=== PATIENT | male | born 1990 | race Hispanic/Latino ===

== ENCOUNTER 2018-10-20 09:51 | Emergency (ER) | payer BC ==
[2018-10-20] MEDS ORDERED: Sodium Chloride 0.9% 1,000 ML IV ONE ×2 (10:07→12:04)
--- NOTE | 2018-10-20 10:17 | ED PDOC ---
HPI: Abdomen Time Seen by Provider: 10/20/18 10:07 Chief Complaint (Nursing): Abdominal Pain Chief Complaint (Provider): RUQ Abdominal Pain History Per: Patient History/Exam Limitations: no limitations Onset/Duration Of Symptoms: Hrs (twelve) Outside of [place] travel?: No Current Symptoms Are (Timing): Still Present Context: Food Severity: Moderate Location Of Pain/Discomfort: RUQ (Pt presents to the ED complaining of RUQ abdominal pain and vomiting for the past twelve hours. At onset, pt was in a restaurant eatting tuna tartare, but other consumers of the same dish were unaffected. Pt has nausea and vomiting accompanying the pain. Pt denies fever but is mildly diaphoretic and uncomfortable.) Past Medical History Reviewed: Historical Data, Nursing Documentation, Vital Signs Vital Signs: Last Vital Signs Temp 97.5 F L 10/20/18 09:54 Pulse 63 10/20/18 09:54 Resp 18 10/20/18 09:54 BP 152/90 H 10/20/18 09:54 Pulse Ox 100 10/20/18 09:54 - Medical History PMH: Chronic Kidney Disease - Family History Family History: States: Unknown Family Hx - Home Medications Home Medications: Ambulatory Orders Medication Instructions Recorded Nitrofurantoin Macrocrystals 100 mg PO BID #10 cap 10/20/18 [Macrobid] - Allergies Allergies/Adverse Reactions: Allergies Allergy/AdvReac Type Severity Reaction Status Date / Time No Known Allergies Allergy Verified 10/20/18 09:58 Review of Systems ROS Statement: Except As Marked, All Systems Reviewed And Found Negative Constitutional: Positive for: Chills Gastrointestinal: Positive for: Nausea, Vomiting, Abdominal Pain Physical Exam - Reviewed Nursing Documentation Reviewed: Yes Vital Signs Reviewed: Yes - Physical Exam Appears: Positive for: Well, No Acute Distress, Uncomfortable Head Exam: Positive for: ATRAUMATIC, NORMAL INSPECTION Skin: Positive for: Normal Color, Warm, Diaphoresis. Negative for: Pallor, Rash ENT: Positive for: Normal ENT Inspection Neck: Positive for: Normal, Painless ROM, Supple. Negative for: Decreased ROM Cardiovascular/Chest: Positive for: Regular Rate, Rhythm, Chest Non Tender. Negative for: Murmur, Bradycardia, Tachycardia Respiratory: Positive for: Normal Breath Sounds. Negative for: Decreased Breath Sounds, Accessory Muscle Use, Crackles, Rales, Rhonchi, Stridor, Wheezing, Respiratory Distress Pulses-Carotid (L): 2+ Pulses-Carotid (R): 2+ Pulses-Radial (L): 2+ Pulses-Radial (R): 2+ Gastrointestinal/Abdominal: Positive for: Bowel Sounds (active in all four quadrans), Soft, Tenderness (Carnes sign is (+); there is no tenderness at [place]; the Merckle sign is negative and the Rovsing sign is negative). Negative for: Guarding, Rebound, Asicites Back: Positive for: Normal Inspection. Negative for: L CVA Tenderness, R CVA Tenderness Neurologic/Psych: Positive for: Alert, Oriented - Laboratory Results Result Diagrams: 10/20/18 10:25 10/20/18 10:25 - ECG O2 Sat by Pulse Oximetry: 100 Medical Decision Making Medical Decision Making: I: R/O acute abdomen choley vs food related Plan: Diagnostics CMP: hyper Ca CBC: ((+) WBC Lipase: (-) Influenza: (-) U/S Abdomen: LIVER: Measures 14.4 cm in sagittal dimension and appears within normal limits of size, shape, and echotexture. No focal hepatic mass identified. The main portal vein appears patent with normal directional flow. No intrahepatic bile duct dilatation. GALLBLADDER: No gallstones. No gallbladder wall thickening. Negative sonographic Carnes's sign as assessed by the maritime pilot. COMMON BILE DUCT: Measures 3 mm. PANCREAS: Not well visualized. RIGHT KIDNEY: Measures 14.6 x 7.4 x 5.0cm. Evidence of severe right-sided hydronephrosis. No obstructing calculus identified. LEFT KIDNEY: Measures 12.7 x 7.0 x 6.3cm. No obstructing calculus or hydronephrosis identified. SPLEEN: Measures approximately 10.6 cm. AORTA: Limited views appear unremarkable. IVC: Limited views appear unremarkable. OTHER FINDINGS: None. IMPRESSION: Evidence of severe right-sided hydronephrosis. TX: zofran morphine NS 2L On re-evaluation, the patient has passed a PO challenge and is non-tender to palpation in all four quadrants. The following discussion took place: the patient was told that an appropriate evaluation has been performed, and in my medical judgment there is currently no evidence of an immediate life-threatening or surgical condition. Discharge is therefore indicated at this time. The patient was advised that a small risk still exists that a serious condition could develop. The patient was instructed to arrange mandatory close follow-up with their physician (or with the referral physician given today) within 24 hours. If that doctor is not available, the patient was instructed to return to the Emergency Department. The patient was told to return to the Emergency Department immediately if the symptoms worsen. The patient was discharged home in hemodynamically stable condition. Instructed to follow up with his urologist in 48 hours and further Instructed to return immediately for increasing pain, change in pain character or location, fevers, nausea, vomiting or any worrisome concern. Rx Macrobid for UTI findings on UA Disposition - Clinical Impression Clinical Impression: Abdominal discomfort, Hydronephrosis determined by ultrasound - Patient ED Disposition Is Patient to be Admitted: No Doctor Will See Patient In The: Office Counseled Patient/Family Regarding: Diagnosis, Need For Followup, Rx Given - Disposition Disposition: Routine/Home Disposition Time: 14:41 Condition: STABLE Additional Instructions: Follow up with your urologist in 48 hours Return to ED if you develop fever, nausea, vomiting or develop any abdominal pain Prescriptions: Nitrofurantoin Macrocrystals [Macrobid] 100 mg PO BID #10 cap Instructions: Hydronephrosis in Adults, Nausea and Vomiting, Adult (DC), Viral Gastroenteritis, Adult (DC), Hydronephrosis, Adult (DC) Forms: [employer] ([place]ian)
[2018-10-20 10:35] LABS: BASO # 0.1 K/uL (0.0-0.2); BASO % 0.8 % (0.0-2.0); HEMOGLOBIN 14.9 g/dL (12.0-18.0); LYMPH # 0.7 K/uL (1.0-4.3); LYMPH % 5.5 % (20.0-40.0); MEAN CELL VOLUME 91.7 fl (80.0-94.0); MEAN CORPUSCULAR HGB CONC 33.8 g/dL (33.0-37.0); MEAN PLATELET VOLUME 8.2 fl (7.2-11.7); MONO # 0.3 K/uL (0.0-0.8); MONO % 2.3 % (0.0-10.0); NEUT # 12.1 K/uL (1.8-7.0); NEUT % 91.4 % (50.0-75.0); PLATELET COUNT 223 K/uL (130-400); RBC 4.79 Mil/uL (4.40-5.90); RED CELL DISTRIBUTION WIDTH 13.2 % (11.5-14.5); WHITE BLOOD COUNT 13.2 K/uL (4.8-10.8)
[2018-10-20] MEDS ORDERED: Morphine 4 MG/ML VIAL IVP ONE (10:51)
[2018-10-20 10:53] LABS: ALB/GLOB RATIO 1.5 (1.0-2.1); ALBUMIN 5.1 g/dL (3.5-5.0); ALT/SGPT 31 U/L (21-72); AST/SGOT 34 U/L (17-59); BLOOD UREA NITROGEN 20 mg/dl (9-20); CALCIUM 10.6 mg/dL (8.4-10.2); GFR NON-AFRICAN AMERICAN > 60; LIPASE 35 U/L (23-300)
[2018-10-20 12:11] LABS: LYMPHOCYTE 7 % (20-50); MONOCYTE 2 % (0-10); NEUTROPHIL 91 % (42-75); TOTAL CELLS COUNTED 100
[2018-10-20 12:12] LABS: PLATELET ESTIMATE NORMAL (NORMAL)
[2018-10-20 13:07] LABS: SQUAMOUS EPITHIAL 3 /hpf (0-5); URINE BACTERIA FEW (<OCC); URINE BILIRUBIN NEGATIVE (NEGATIVE); URINE BLOOD NEGATIVE (NEGATIVE); URINE CLARITY CLEAR (Clear); URINE COLOR YELLOW (YELLOW); URINE GLUCOSE (UA) NEG (NEGATIVE); URINE LEUKOCYTE ESTERASE NEG Leu/uL (Negative); URINE PROTEIN 30 mg/dL (NEGATIVE); URINE UROBILINOGEN 0.2-1.0 mg/dL (0.2-1.0)
[2018-10-20 13:17] LABS: URINE AMORPHOUS SEDIMENT FEW /ul (<OCC)
--- NOTE | 2018-10-20 14:28 | US ---
HISTORY: r/o choley COMPARISON: None available. TECHNIQUE: Sonographic evaluation of the abdomen. FINDINGS: LIVER: Measures 14.4 cm in sagittal dimension and appears within normal limits of size, shape, and echotexture. No focal hepatic mass identified. The main portal vein appears patent with normal directional flow. No intrahepatic bile duct dilatation. GALLBLADDER: No gallstones. No gallbladder wall thickening. Negative sonographic Carnes's sign as assessed by the block machine operator. COMMON BILE DUCT: Measures 3 mm. PANCREAS: Not well visualized. RIGHT KIDNEY: Measures 14.6 x 7.4 x 5.0cm. Evidence of severe right-sided hydronephrosis. No obstructing calculus identified. LEFT KIDNEY: Measures 12.7 x 7.0 x 6.3cm. No obstructing calculus or hydronephrosis identified. SPLEEN: Measures approximately 10.6 cm. AORTA: Limited views appear unremarkable. IVC: Limited views appear unremarkable. OTHER FINDINGS: None. IMPRESSION: Evidence of severe right-sided hydronephrosis.
[2018-10-20 15:12] VITALS: BP 129/65; PULSE 78; RESP 16; TEMP 99.1; O2SAT 97
== END 2018-10-20 14:51 | disposition home or self-care (01) ==
LOC: H.ER 09:51
DX: R10.11 Right upper quadrant pain (principal); N13.2 Hydronephrosis with renal and ureteral calculous obstruction
CPT/HCPCS: 76700; 80053; 81003; 83690; 85025; 87804; 96361; 96374; 96375; 99285; J2270; J2405; J7030